=== PATIENT | female | born 1950 | race Caucasian/White ===

== ENCOUNTER 2016-05-27 10:04 | Emergency (ER) | payer OTHER ==
[~2016-05-27] VITALS: Ht 157.5 cm; Wt 80.0 kg
[~2016-05-27 10:04] MED LIST: ALBU6.7H INH; ASPI81TA82 PO; BUPR1SUB SL; CENTTAB9 PO; CINN500C7 PO; CLON0.2T PO; COZA50TA PO; DICL75 PO; FENO200C PO; FISH120014 PO; GARL500T PO; LEVO50TA4 PO; PRAV10 PO; PRIL20CA PO; VITA-13 PO; VITA100017 PO; VITA400C70 PO; ZITH250T PO
[2016-05-27 10:20] VITALS: BP 141/94; PULSE 88; RESP 20; TEMP 98.9; O2SAT 95
[2016-05-27 11:21] VITALS: BP 167/76; TEMP 98.8; O2SAT 97
[2016-05-27] MEDS ORDERED: SODIUM CHLORIDE 0.9% FLUSH 10 ML FLUSH IVF PRN (11:30)
[2016-05-27] MEDS ORDERED: MULT1TAB84 PO (11:30)
[2016-05-27] MEDS ORDERED: LEVO50TA4 PO (11:30)
[2016-05-27] MEDS ORDERED: FISH1000 PO (11:30)
[2016-05-27] MEDS ORDERED: methylPREDNISolone SOD SUCC 125 MG/2 ML VIAL IVP ONE (11:30)
[2016-05-27] MEDS ORDERED: CHOL50006 PO (11:30)
[2016-05-27] MEDS ORDERED: PRAV40TA2 PO (11:30)
[2016-05-27] MEDS ORDERED: LOSA50TA PO (11:30)
[2016-05-27] MEDS ORDERED: DICL75TA PO (11:30)
[2016-05-27] MEDS ORDERED: BUPR1SUB PO (11:30)
[2016-05-27] MEDS ORDERED: CINN500C PO (11:30)
[2016-05-27] MEDS ORDERED: METO25TA3 PO (11:30)
[2016-05-27] MEDS ORDERED: ASPI81TA81 PO (11:30)
[2016-05-27] MEDS ORDERED: OMEP20TA PO (11:30)
[2016-05-27] MEDS ORDERED: RESP: LIDOCAINE HCL 4% PF 5 ML NEB NEB ONE (11:30)
[2016-05-27] MEDS ORDERED: FENO2.5C PO (11:30)
--- NOTE | 2016-05-27 11:34 | PD ---
HPI Chief Complaint: Fever Time Seen by Provider: 11:17 Travel History International Travel<30 days: No Contact w/Intl Traveler<30days: No Traveled to known affect area: No History of Present Illness HPI The patient is a 65-year-old female who presents to the emergency department for cough and cold symptoms of 2 days' duration. The patient notes a 2 day history of sinus congestion, productive cough producing yellow sputum, sore throat, muscle aches, and mild shortness of breath. The patient has a history of pneumonia with similar symptoms. The patient also reports a fever at home as high as 101. The patient denies taking any antipyretics prior to arrival. The patient also complains of some chest congestion associated with a cough. The patient denies any nausea, vomiting, diarrhea, abdominal pain, or dysuria. The patient's primary physician is Dr. Jones in [place], [place]. The patient's symptoms are moderate, there are no alleviating or exacerbating factors. The patient denies any history tobacco use or COPD. PFSH Past Medical History Arthritis: Yes Bipolar Disorder: Yes Anxiety: Yes Depression: Yes Diminished Hearing: No Gastrointestinal Disorders: Yes Hepatitis: Yes (TYPE A MANY YEARS AGO) Hypertension: Yes Musculoskeletal: Yes (CHRONIC BACK PAIN) Psychiatric: Yes Past Surgical History Appendectomy: Yes Cholecystectomy: Yes Gynecologic Surgery: Yes Hysterectomy: Yes Neurologic Surgery: No Oral Surgery: Yes Thoracic Surgery: Yes (BACK SURGERY) Tonsillectomy: Yes (1975) Other Surgery: Yes Social History Alcohol Use: No Tobacco Use: No Substance Use: No Allergies-Medications (Allergen,Severity, Reaction): Coded Allergies: No Known Allergies (Verified , 12/03/14) Reported Meds & Prescriptions Reported Meds & Active Scripts Active Reported Metoprolol Tartrate 25 Mg Tab 25 Mg PO DAILY Fenofibrate 50 Mg Cap 200 Mg PO DAILY Diclofenac Sodium DR (Diclofenac Sodium) 75 Mg Tabdr 75 Mg PO DAILY Levothyroxine (Levothyroxine Sodium) 50 Mcg Tab 50 Mcg PO DAILY Omeprazole 20 Mg Tab 20 Mg PO DAILY Aspir-81 (Aspirin) 81 Mg Tabdr 1 Tab PO DAILY Fish Oil ([place]-3 Fatty Acids) 1,000 Mg Cap 1 Cap PO DAILY Multivitamin Adults (Multiple Vitamins W/ Minerals) 1 Tab 1 Tab PO DAILY Vitamin D (Cholecalciferol) 5,000 Unit Tab 1 Tab PO DAILY Cinnamon 500 Mg Cap 1,000 Mg PO DAILY Losartan (Losartan Potassium) 50 Mg Tab 50 Mg PO DAILY Pravastatin 40 Mg Tab 40 Mg PO DAILY Zubsolv (Buprenorphine/Naloxone) 0.7-0.18 Mg Tab 0.5 Tab PO BID Review of Systems Except as stated in HPI: all other systems reviewed are Neg General / Constitutional: Positive: Fever HENT: Positive: Sore Throat, Congestion Cardiovascular: Positive: Chest Pain or Discomfort Respiratory: Positive: Cough, Shortness of Breath, Wheezing Gastrointestinal: No: Nausea, Vomiting, Diarrhea, Abdominal Pain Genitourinary: No: Dysuria Musculoskeletal: Positive: Myalgias, No: Weakness Skin: No Rash Physical Exam Narrative GENERAL: Awake, alert, pleasant 65-year-old female who appears her stated age and is in no acute respiratory distress. SKIN: Focused skin assessment warm/dry. HEAD: Atraumatic. Normocephalic. EYES: Pupils equal and round. No scleral icterus. No injection or drainage. ENT: No nasal bleeding or discharge. Cobblestoning of posterior pharynx, no exudate. NECK: Trachea midline. No JVD. CARDIOVASCULAR: Regular rate and rhythm. No murmur appreciated. RESPIRATORY: No accessory muscle use. Diffuse rhonchi and wheezing. GASTROINTESTINAL: Abdomen soft, non-tender, nondistended. No rebound tenderness. MUSCULOSKELETAL: No obvious deformities. No clubbing. No cyanosis. No edema. NEUROLOGICAL: Awake and alert. No obvious cranial nerve deficits. Motor grossly within normal limits. Normal speech. PSYCHIATRIC: Appropriate mood and affect; insight and judgment normal. Data Data Last Documented VS Vital Signs Date Time Temp Pulse Resp B/P Pulse Ox O2 Delivery O2 Flow Rate FiO2 05/27/16 11:46 94 Nasal Cannula 2 05/27/16 11:21 98.8 75 20 167/76 Orders Complete Blood Count With Diff (05/27/16 11:27) Comprehensive Metabolic Panel (05/27/16 11:27) B-Type Natriuretic Peptide (05/27/16 11:27) Magnesium (Mg) (05/27/16 11:27) Ckmb (Isoenzyme) Profile (05/27/16 11:27) Troponin I (05/27/16 11:27) Urinalysis - C+S If Indicated (05/27/16 11:27) Influenzae A/B Antigen (05/27/16 11:27) Iv Access Insert/Monitor (05/27/16 11:27) Electrocardiogram (05/27/16 11:27) Ecg Monitoring (05/27/16 11:27) Oximetry (05/27/16 11:27) Oxygen Administration (05/27/16 11:27) Chest, Single Ap (05/27/16 11:27) Sodium Chloride 0.9% Flush (Ns Flush) (05/27/16 11:30) Methylprednisolone So Succ Inj (Solumedr (05/27/16 11:30) Albuterol-Ipratropium Neb (Duoneb Neb) (05/27/16 11:30) Lidocaine Pf 4% Neb (Lidocaine Pf 4% Neb (05/27/16 11:30) CKMB (05/27/16 11:35) CKMB% (05/27/16 11:35) Urine Culture (05/27/16 13:05) Ciprofloxacin 400 Mg Premix (Cipro 400 M (05/27/16 14:00) Labs Laboratory Tests Test 05/27/16 05/27/16 11:35 13:05 White Blood Count 5.1 TH/MM3 Red Blood Count 4.72 MIL/MM3 Hemoglobin 13.1 GM/DL Hematocrit 38.7 % Mean Corpuscular Volume 82.0 FL Mean Corpuscular Hemoglobin 27.8 PG Mean Corpuscular Hemoglobin 33.9 % Concent Red Cell Distribution Width 14.3 % Platelet Count 314 TH/MM3 Mean Platelet Volume 8.3 FL Neutrophils (%) (Auto) 63.1 % Lymphocytes (%) (Auto) 22.1 % Monocytes (%) (Auto) 10.0 % Eosinophils (%) (Auto) 4.1 % Basophils (%) (Auto) 0.7 % Neutrophils # (Auto) 3.2 TH/MM3 Lymphocytes # (Auto) 1.1 TH/MM3 Monocytes # (Auto) 0.5 TH/MM3 Eosinophils # (Auto) 0.2 TH/MM3 Basophils # (Auto) 0.0 TH/MM3 CBC Comment DIFF FINAL Differential Comment Sodium Level 141 MEQ/L Potassium Level 4.2 MEQ/L Chloride Level 107 MEQ/L Carbon Dioxide Level 26.8 MEQ/L Anion Gap 7 MEQ/L Blood Urea Nitrogen 13 MG/DL Creatinine 0.81 MG/DL Estimat Glomerular Filtration 71 ML/MIN Rate Random Glucose 80 MG/DL Calcium Level 8.9 MG/DL Magnesium Level 2.1 MG/DL Total Bilirubin 0.4 MG/DL Aspartate Amino Transf 31 U/L (AST/SGOT) Alanine Aminotransferase 35 U/L (ALT/SGPT) Alkaline Phosphatase 74 U/L Total Creatine Kinase 122 U/L Creatine Kinase MB 1.2 NG/ML Troponin I LESS THAN 0.02 NG/ML B-Type Natriuretic Peptide 27 PG/ML Total Protein 7.6 GM/DL Albumin 3.8 GM/DL Urine Color DARK-YELLOW Urine Turbidity HAZY Urine pH 5.5 Urine Specific [place] 1.036 Urine Protein 30 mg/dL Urine Glucose (UA) NEG mg/dL Urine Ketones TRACE mg/dL Urine Occult Blood NEG Urine Nitrite NEG Urine Bilirubin NEG Urine Urobilinogen LESS THAN 2.0 MG/DL Urine Leukocyte Esterase LARGE Urine WBC 15 /hpf Urine Squamous Epithelial 3 /hpf Cells Urine Transitional Epithelial <1 /hpf Cells Urine Calcium Oxalate Crystals FEW /hpf Urine Bacteria RARE /hpf Urine Mucus MANY /lpf Microscopic Urinalysis Comment CULTURE INDICATED MDM Medical Decision Making Medical Screen Exam Complete: Yes Emergency Medical Condition: Yes Medical Record Reviewed: Yes Interpretation(s) EKG reveals normal sinus rhythm with a rate of 74. Nonspecific T wave changes. Laboratory Tests Test 05/27/16 05/27/16 11:35 13:05 White Blood Count 5.1 TH/MM3 Red Blood Count 4.72 MIL/MM3 Hemoglobin 13.1 GM/DL Hematocrit 38.7 % Mean Corpuscular Volume 82.0 FL Mean Corpuscular Hemoglobin 27.8 PG Mean Corpuscular Hemoglobin 33.9 % Concent Red Cell Distribution Width 14.3 % Platelet Count 314 TH/MM3 Mean Platelet Volume 8.3 FL Neutrophils (%) (Auto) 63.1 % Lymphocytes (%) (Auto) 22.1 % Monocytes (%) (Auto) 10.0 % Eosinophils (%) (Auto) 4.1 % Basophils (%) (Auto) 0.7 % Neutrophils # (Auto) 3.2 TH/MM3 Lymphocytes # (Auto) 1.1 TH/MM3 Monocytes # (Auto) 0.5 TH/MM3 Eosinophils # (Auto) 0.2 TH/MM3 Basophils # (Auto) 0.0 TH/MM3 CBC Comment DIFF FINAL Differential Comment Sodium Level 141 MEQ/L Potassium Level 4.2 MEQ/L Chloride Level 107 MEQ/L Carbon Dioxide Level 26.8 MEQ/L Anion Gap 7 MEQ/L Blood Urea Nitrogen 13 MG/DL Creatinine 0.81 MG/DL Estimat Glomerular Filtration 71 ML/MIN Rate Random Glucose 80 MG/DL Calcium Level 8.9 MG/DL Magnesium Level 2.1 MG/DL Total Bilirubin 0.4 MG/DL Aspartate Amino Transf 31 U/L (AST/SGOT) Alanine Aminotransferase 35 U/L (ALT/SGPT) Alkaline Phosphatase 74 U/L Total Creatine Kinase 122 U/L Creatine Kinase MB 1.2 NG/ML Troponin I LESS THAN 0.02 NG/ML B-Type Natriuretic Peptide 27 PG/ML Total Protein 7.6 GM/DL Albumin 3.8 GM/DL Urine Color DARK-YELLOW Urine Turbidity HAZY Urine pH 5.5 Urine Specific [place] 1.036 Urine Protein 30 mg/dL Urine Glucose (UA) NEG mg/dL Urine Ketones TRACE mg/dL Urine Occult Blood NEG Urine Nitrite NEG Urine Bilirubin NEG Urine Urobilinogen LESS THAN 2.0 MG/DL Urine Leukocyte Esterase LARGE Urine WBC 15 /hpf Urine Squamous Epithelial 3 /hpf Cells Urine Transitional Epithelial <1 /hpf Cells Urine Calcium Oxalate Crystals FEW /hpf Urine Bacteria RARE /hpf Urine Mucus MANY /lpf Microscopic Urinalysis Comment CULTURE INDICATED Last Impressions Chest X-Ray 05/27/16 1127 Signed Impressions: Service Date/Time: Friday, May 27, 2016 11:46 - CONCLUSION: No acute disease. Joe Griffin MD Differential Diagnosis Differential diagnosis includes influenza, bronchitis, pneumonia, viral syndrome , congestive heart failure, ACS. Narrative Course IV was established, labs are drawn and sent, and the patient was placed on cardiac telemetry monitoring and continuous pulse oximetry monitoring. EKG was ordered and interpreted. Chest x-ray was obtained. Influenza screen was sent to lab. The patient received Solu-Medrol 125 g intravenously and duo nebs 3 with respiratory lidocaine. Chest x-ray was negative. White count is normal. BNP is within normal limits. Troponin is negative. The patient is reevaluated after nebulizers, her symptoms have improved. The patient is are taken an antibiotic, erythromycin, that was prescribed for by her physician for the bronchitis. The patient's UA is positive, will be treated with Cipro. The patient will be discharged home on Cipro, prednisone, and albuterol nebulizers. She does have a nebulizer machine, a family members, at home that she can use. The patient is advised to follow-up with her physician on Monday and return sooner if symptoms worsen or progress. Diagnosis Primary Impression: Bronchitis Additional Impression: UTI (urinary tract infection) Qualified Code: N30.00 - Acute cystitis without hematuria Patient Instructions: General Instructions Additional Instructions: Medications as directed. Follow-up with your primary physician. Please provide the patient a copy of her x-ray results and lab results at discharge. Return sooner if symptoms worsen or progress. Med/Other Pt SpecificInfo: Prescription(s) given Scripts Albuterol Neb 2.5 Mg/3 Ml Neb2.5 Mg NEB Q4HR NEB #60 NEBULE Ref 0 While awake Prov:Avinash Nur MD 05/27/16 Prednisone (Deltasone)20 Mg Tab40 Mg PO DAILY 5 Days Ref 0 Prov:Avinash Nur MD 05/27/16 Ciprofloxacin (Cipro)500 Mg Ero056 Mg PO BID 7 Days Ref 0 Prov:Avinash Nur MD 05/27/16 Disposition: 01 DISCHARGE HOME Condition: Stable Avinash Nur MD May 27, 2016 11:34
[2016-05-27] MEDS: RESP: ALBUTEROL 2.5 MG/IPRATROPIUM 0.5 MG NEB (SCH) INH (11:49)
[2016-05-27 11:55] LABS: AUTOMATED NEUTROPHIL # 3.2 TH/MM3 (1.8-7.7); BASOPHIL % 0.7 % (0.0-2.0); EOSINOPHIL # 0.2 TH/MM3 (0-0.4); EOSINOPHIL % 4.1 % (0.0-4.0); HEMATOCRIT 38.7 % (35.0-46.0); HEMO FLAGS DIFF FINAL; LYMPH % 22.1 % (9.0-44.0); LYMPHOCYTE # 1.1 TH/MM3 (1.0-4.8); MEAN CORPUSCULAR HEMOGLOBIN 27.8 PG (27.0-34.0); MEAN CORPUSCULAR HGB CONC 33.9 % (32.0-36.0); NEUT % 63.1 % (16.0-70.0); PLATELET COUNT 314 TH/MM3 (150-450); RED BLOOD COUNT 4.72 MIL/MM3 (4.00-5.30); RED CELL DISTRIBUTION WIDTH 14.3 % (11.6-17.2); WHITE BLOOD COUNT 5.1 TH/MM3 (4.0-11.0)
[2016-05-27 12:14] LABS: ANION GAP 7 MEQ/L (5-15); AST (GOT) 31 U/L (15-37); BICARBONATE 26.8 MEQ/L (21.0-32.0); BLOOD UREA NITROGEN 13 MG/DL (7-18); CHLORIDE 107 MEQ/L (98-107); GLOMERULAR FILTRATION RATE 71 ML/MIN (>89); MAGNESIUM 2.1 MG/DL (1.5-2.5); POTASSIUM 4.2 MEQ/L (3.5-5.1); SODIUM (NA) 141 MEQ/L (136-145)
[2016-05-27 12:18] LABS: ALKALINE PHOSPHATASE 74 U/L (45-117); ALT (GPT) 35 U/L (10-53); CREATINE KINASE 122 U/L (26-192); TOTAL BILIRUBIN ADULT 0.4 MG/DL (0.2-1.0)
--- NOTE | 2016-05-27 12:27 | RADRPT ---
EXAM DATE/TIME: 05/27/2016 11:46 [facility] COMPARISON: CHEST SINGLE AP, December 03, 2014, 10:39. INDICATIONS : Short of breath. MEDICAL HISTORY : None. SURGICAL HISTORY : None. ENCOUNTER: Initial ACUITY: 2 days PAIN SCORE: 7/10 LOCATION: Bilateral chest FINDINGS: A single view of the chest demonstrates the lungs to be symmetrically aerated without evidence of mas s, infiltrate or effusion. The cardiomediastinal contours are unremarkable. Osseous structures are intact. CONCLUSION: No acute disease. Joe Griffin MD on May 27, 2016 at 12:25 Board Certified Radiologist. This report was verified electronically.
[2016-05-27 12:30] LABS: CKMB 1.2 NG/ML (0.5-3.6)
[2016-05-27 13:39] LABS: BACTERIA, URINE RARE /hpf; BLOOD, URINE NEG (NEG); CALCIUM OXALATE CRYSTALS,URINE FEW /hpf; GLUCOSE,URINE NEG (NEG); KETONE, URINE TRACE mg/dL (NEG); MUCUS URINE MANY /lpf (OCC); NITRITE,URINE NEG (NEG); PH, URINE 5.5 (5.0-8.5); SQUAMOUS EPITHELIAL CELL URINE 3 /hpf (0-5); TRANSITIONAL EPI CELLS, URINE <1 /hpf; URINE COLOR DARK-YELLOW (YELLW/STRAW)
[2016-05-27 13:43] LABS: COMMENT (UR) CULTURE INDICATED; CULTURE IF INDICATED CULTURE INDICATED
[2016-05-27 14:00] VITALS: BP 142/66; PULSE 95; RESP 20; O2SAT 98
[2016-05-27] MEDS ORDERED: CIPROFLOXACIN 400 MG PREMIX 200 ML IV ONE (14:00)
[2016-05-27] MEDS ORDERED: CIPR-9 PO (14:02)
[2016-05-27] MEDS ORDERED: PRED-503 PO (14:02)
[2016-05-27] MEDS ORDERED: ALBU0.08 NEB (14:02)
--- NOTE | 2016-05-28 14:25 | EKG ---
Date Performed: 05/27/2016 Time Performed: 11:42:28 PTAGE: 65 years EKG: Sinus rhythm NONSPECIFIC T-WAVE ABNORMALITY Since previous tracing, no significant change noted BORDERLINE ECG PREVIOUS TRACING : 05/31/1994 11.08 DOCTOR: Greg Ackerman Interpretating Date/Time 05/28/2016 14:23:43
== END 2016-05-27 17:45 | disposition home or self-care (01) ==
LOC: NEPE 10:04
DX: J40 Bronchitis, not specified as acute or chronic (principal); N39.0 Urinary tract infection, site not specified; R94.31 Abnormal electrocardiogram [ECG] [EKG]; I10 Essential (primary) hypertension
CPT/HCPCS: 71010; 80053; 81001; 82550; 82552; 83735; 83880; 84484; 85025; 87086; 87804; 93005; 94640; 94664; 96374; 96375; 99284; J0744; J2930

== ENCOUNTER 2016-10-16 13:30 | Emergency (ER) | payer OTHER ==
[~2016-10-16 13:30] MED LIST changes: +ALBU0.08 NEB; -ALBU6.7H INH; +ASPI81TA81 PO; -ASPI81TA82 PO; +BUPR1SUB PO; -BUPR1SUB SL; -CENTTAB9 PO; +CHOL50006 PO; +CINN500C PO; -CINN500C7 PO; +CIPR-9 PO; -CLON0.2T PO; -COZA50TA PO; -DICL75 PO; +DICL75TA PO; +FENO2.5C PO; -FENO200C PO; +FISH1000 PO; -FISH120014 PO; -GARL500T PO; +LOSA50TA PO; +METO25TA3 PO; +MULT1TAB84 PO; +OMEP20TA PO; -PRAV10 PO; +PRAV40TA2 PO; +PRED-503 PO; -PRIL20CA PO; -VITA-13 PO; -VITA100017 PO; -VITA400C70 PO; -ZITH250T PO
[2016-10-16 13:32] VITALS: BP 178/74; PULSE 84; RESP 15; TEMP 97.9; O2SAT 98
--- NOTE | 2016-10-16 14:03 | PD ---
HPI Chief Complaint: GI Complaint Time Seen by Provider: 14:01 Travel History International Travel<30 days: No Contact w/Intl Traveler<30days: No Traveled to known affect area: No History of Present Illness HPI 66-year-old female presents the emergency department one week history of nausea, vomiting, and generalized weakness. Patient states long history of back pain for which she was treated with morphine for almost 15 years and then changed to Suboxone for the last 10 years for pain control. Patient states she ran out of her Suboxone approximately one week ago and does not want to continue it. Since that time she's had the nausea, vomiting, and one bout of diarrhea. Patient states she is unable to keep much food down, but has been trying to keep her fluids up. She denies fever but has had some chills. She denies abdominal pain and is moving her bowels. She does have some pain in the lower ribs which she feels is from vomiting. She denies chest pain or shortness of breath. She has no known drug allergies. PFSH Past Medical History Arthritis: Yes Bipolar Disorder: Yes Anxiety: Yes Depression: Yes Diminished Hearing: No Gastrointestinal Disorders: Yes Hepatitis: Yes (TYPE A MANY YEARS AGO) Hypertension: Yes Musculoskeletal: Yes (CHRONIC BACK PAIN) Psychiatric: Yes Past Surgical History Appendectomy: Yes Cholecystectomy: Yes Gynecologic Surgery: Yes Hysterectomy: Yes Neurologic Surgery: No Oral Surgery: Yes Thoracic Surgery: Yes (BACK SURGERY) Tonsillectomy: Yes (1975) Other Surgery: Yes Social History Alcohol Use: No Tobacco Use: No Substance Use: No Allergies-Medications (Allergen,Severity, Reaction): Coded Allergies: No Known Allergies (Verified , 12/03/14) Reported Meds & Prescriptions Reported Meds & Active Scripts Active Albuterol Neb (Albuterol Sulfate) 2.5 Mg/3 Ml Neb 2.5 Mg NEB Q4HR NEB While awake Deltasone (Prednisone) 20 Mg Tab 40 Mg PO DAILY 5 Days Cipro (Ciprofloxacin HCl) 500 Mg Tab 500 Mg PO BID 7 Days Reported Metoprolol Tartrate 25 Mg Tab 25 Mg PO DAILY Fenofibrate 50 Mg Cap 200 Mg PO DAILY Diclofenac Sodium DR (Diclofenac Sodium) 75 Mg Tabdr 75 Mg PO DAILY Levothyroxine (Levothyroxine Sodium) 50 Mcg Tab 50 Mcg PO DAILY Omeprazole 20 Mg Tab 20 Mg PO DAILY Aspir-81 (Aspirin) 81 Mg Tabdr 1 Tab PO DAILY Fish Oil ([place]-3 Fatty Acids) 1,000 Mg Cap 1 Cap PO DAILY Losartan (Losartan Potassium) 50 Mg Tab 50 Mg PO DAILY Pravastatin 40 Mg Tab 40 Mg PO DAILY Zubsolv (Buprenorphine/Naloxone) 0.7-0.18 Mg Tab 0.5 Tab PO BID Review of Systems Except as stated in HPI: all other systems reviewed are Neg General / Constitutional: Positive: Chills, No: Fever Eyes: No: Visual changes HENT: No: Headaches Cardiovascular: No: Chest Pain or Discomfort Respiratory: No: Cough, Shortness of Breath, Wheezing, Sneezing Gastrointestinal: Positive: Nausea, Vomiting, Diarrhea (see history present illness), Loss of Appetite, No: Abdominal Pain, Constipation, Indigestion, Dysphagia Genitourinary: No: Dysuria Musculoskeletal: No: Pain Skin: No Rash Neurologic: No: Weakness Psychiatric: No: Depression Endocrine: No: Polydipsia Hematologic/Lymphatic: No: Easy Bruising Physical Exam Narrative GENERAL: Patient appears in no acute distress. SKIN: Warm and dry. Normal color. Decreased turgor with mild tenting. HEAD: Atraumatic. Normocephalic. EYES: Pupils equal and round. No scleral icterus. No injection or drainage. ENT: No nasal bleeding or discharge. Mucous membranes pink and moist. Pharynx is clear. Airway is patent. NECK: Trachea midline. Supple and nontender. CARDIOVASCULAR: Regular rate and rhythm. No murmurs gallops or rubs. RESPIRATORY: No accessory muscle use. Clear to auscultation. Breath sounds equal bilaterally. GASTROINTESTINAL: Abdomen soft, non-tender, nondistended. Bowel sounds present in all quadrants. Hepatic and splenic margins not palpable. No CVA tenderness. MUSCULOSKELETAL: Extremities without clubbing, cyanosis, or edema. No obvious deformities. NEUROLOGICAL: Awake and alert. No obvious cranial nerve deficits. Motor grossly within normal limits. Five out of 5 muscle strength in the arms and legs. Normal speech. PSYCHIATRIC: Appropriate mood and affect; insight and judgment normal. Data Data Last Documented VS Vital Signs Date Time Temp Pulse Resp B/P (MAP) Pulse Ox O2 Delivery O2 Flow Rate FiO2 10/16/16 15:43 74 18 132/70 (90) 99 Room Air 10/16/16 13:32 97.9 Orders Orders Complete Blood Count With Diff (10/16/16 14:01) Comprehensive Metabolic Panel (10/16/16 14:01) Lipase (10/16/16 14:01) Lactic Acid (10/16/16 14:01) Prothrombin Time / Inr (Pt) (10/16/16 14:01) Act Partial Throm Time (Ptt) (10/16/16 14:01) Urinalysis - C+S If Indicated (10/16/16 14:) Iv Access Insert/Monitor (10/16/16 14:) Ecg Monitoring (10/16/16 14:) Oximetry (10/16/16 14:01) Ondansetron Inj (Zofran Inj) (10/16/16 14:15) Sodium Chlor 0.9% 1000 Ml Inj (Ns 1000 M (10/16/16 14:) Sodium Chloride 0.9% Flush (Ns Flush) (10/16/16 14:15) Electrocardiogram (10/16/16 14:) Abdomen, Upright Only (10/16/16 14:) Chest, Single Ap (10/16/16 14:) Famotidine Inj (Pepcid Inj) (10/16/16 14:15) Labs Laboratory Tests Test 10/16/16 14:15 10/16/16 15:15 White Blood Count 7.6 TH/MM3 Red Blood Count 5.03 MIL/MM3 Hemoglobin 13.7 GM/DL Hematocrit 42.3 % Mean Corpuscular Volume 84.1 FL Mean Corpuscular Hemoglobin 27.2 PG Mean Corpuscular Hemoglobin Concent 32.3 % Red Cell Distribution Width 14.4 % Platelet Count 353 TH/MM3 Mean Platelet Volume 7.7 FL Neutrophils (%) (Auto) 67.2 % Lymphocytes (%) (Auto) 22.6 % Monocytes (%) (Auto) 8.4 % Eosinophils (%) (Auto) 1.3 % Basophils (%) (Auto) 0.5 % Neutrophils # (Auto) 5.1 TH/MM3 Lymphocytes # (Auto) 1.7 TH/MM3 Monocytes # (Auto) 0.6 TH/MM3 Eosinophils # (Auto) 0.1 TH/MM3 Basophils # (Auto) 0.0 TH/MM3 CBC Comment DIFF FINAL Differential Comment Prothrombin Time 11.3 SEC Prothromb Time International Ratio 1.0 RATIO Activated Partial Thromboplast Time 26.1 SEC Blood Urea Nitrogen 18 MG/DL Creatinine 0.96 MG/DL Random Glucose 92 MG/DL Total Protein 7.9 GM/DL Albumin 4.1 GM/DL Calcium Level 9.6 MG/DL Alkaline Phosphatase 81 U/L Aspartate Amino Transf (AST/SGOT) 28 U/L Alanine Aminotransferase (ALT/SGPT) 43 U/L Total Bilirubin 0.6 MG/DL Sodium Level 140 MEQ/L Potassium Level 3.9 MEQ/L Chloride Level 106 MEQ/L Carbon Dioxide Level 25.9 MEQ/L Anion Gap 8 MEQ/L Estimat Glomerular Filtration Rate 59 ML/MIN Lactic Acid Level 0.9 mmol/L Lipase 136 U/L Urine Color YELLOW Urine Turbidity HAZY Urine pH 5.5 Urine Specific [place] 1.027 Urine Protein 30 mg/dL Urine Glucose (UA) NEG mg/dL Urine Ketones TRACE mg/dL Urine Occult Blood NEG Urine Nitrite NEG Urine Bilirubin NEG Urine Urobilinogen LESS THAN 2.0 MG/DL Urine Leukocyte Esterase NEG Urine RBC 14 /hpf Urine WBC 4 /hpf Urine Squamous Epithelial Cells 2 /hpf Urine Amorphous Sediment RARE Urine Hyaline Casts 3 /lpf Urine Mucus MANY /lpf Microscopic Urinalysis Comment CULT NOT INDICATED MDM Medical Decision Making Medical Screen Exam Complete: Yes Emergency Medical Condition: Yes Medical Record Reviewed: Yes Differential Diagnosis Nausea and vomiting. Diarrhea. Suboxone withdrawal. Narrative Course Patient is medically stable at time of exam. Labs ordered including CBC, CMP, lipase, urinalysis. IV access is obtained and the patient is given 2 L normal saline bolus. Patient is given 4 mg Zofran IV as well as 20 mg Pepcid IV. EKG and chest x-ray is ordered. CBC is unremarkable. CMP is unremarkable. Lactic acid 0.9. Electrolytes and lipase are all normal. BUN/creatinine are normal. Coagulation studies are normal. Urinalysis shows no significant findings. 1540 hrs. patient is reassessed and feels much improved. Patient is felt stable for discharge on Zofran 4 mg 1 every 6 hours when necessary nausea. #20. Patient is to follow with her primary care or pain management physician as discussed. Diagnosis Primary Impression: Nausea & vomiting Qualified Codes: R11.2 - Nausea with vomiting, unspecified Additional Impression: Medication withdrawal Qualified Codes: F11.23 - Opioid dependence with withdrawal Referrals: Pain Management Primary Care Physician Patient Instructions: Acute Nausea and Vomiting (ED), General Instructions Additional Instructions: Patient is felt stable for discharge on Zofran 4 mg 1 every 6 hours when necessary nausea. #20. Patient is to follow with her primary care or pain management physician as discussed. Med/Other Pt SpecificInfo: Prescription(s) given Disposition: 01 DISCHARGE HOME Condition: Stable Jean Pierre Wilkins Oct 16, 2016 14:03
[2016-10-16] MEDS ORDERED: ONDANSETRON HCL 4 MG/2 ML VIAL IVP ONE (14:15)
[2016-10-16] MEDS ORDERED: FAMOTIDINE 20 MG/2 ML VIAL IV PUSH ONE (14:15)
[2016-10-16] MEDS ORDERED: SODIUM CHLORIDE 0.9% FLUSH 10 ML FLUSH IV FLUSH PRN (14:15)
[2016-10-16 14:32] LABS: AUTOMATED NEUTROPHIL # 5.1 TH/MM3 (1.8-7.7); BASOPHIL % 0.5 % (0.0-2.0); EOSINOPHIL # 0.1 TH/MM3 (0-0.4); EOSINOPHIL % 1.3 % (0.0-4.0); HEMATOCRIT 42.3 % (35.0-46.0); HEMO FLAGS DIFF FINAL; LYMPH % 22.6 % (9.0-44.0); LYMPHOCYTE # 1.7 TH/MM3 (1.0-4.8); MEAN CELL VOLUME 84.1 FL (80.0-100.0); MEAN CORPUSCULAR HEMOGLOBIN 27.2 PG (27.0-34.0); MEAN CORPUSCULAR HGB CONC 32.3 % (32.0-36.0); MONO % 8.4 % (0.0-8.0); NEUT % 67.2 % (16.0-70.0); PLATELET COUNT 353 TH/MM3 (150-450); RED BLOOD COUNT 5.03 MIL/MM3 (4.00-5.30); RED CELL DISTRIBUTION WIDTH 14.4 % (11.6-17.2); WHITE BLOOD COUNT 7.6 TH/MM3 (4.0-11.0)
[2016-10-16] MEDS: SODIUM CHLOR 0.9% 1000 ML INJ 1,000 ML IV SCH ×2 (14:35→15:12)
[2016-10-16 14:38] LABS: APTT (PATIENT) 26.1 SEC (24.3-30.1); PROTHROMBIN TIME - PATIENT 11.3 SEC (9.8-11.6)
[2016-10-16 14:46] LABS: ANION GAP 8 MEQ/L (5-15); AST (GOT) 28 U/L (15-37); BICARBONATE 25.9 MEQ/L (21.0-32.0); BLOOD UREA NITROGEN 18 MG/DL (7-18); CHLORIDE 106 MEQ/L (98-107); GLOMERULAR FILTRATION RATE 59 ML/MIN (>89); POTASSIUM 3.9 MEQ/L (3.5-5.1); SODIUM (NA) 140 MEQ/L (136-145)
[2016-10-16 14:50] LABS: ALKALINE PHOSPHATASE 81 U/L (45-117); ALT (GPT) 43 U/L (10-53); TOTAL BILIRUBIN ADULT 0.6 MG/DL (0.2-1.0)
--- NOTE | 2016-10-16 15:10 | RADRPT ---
EXAM DATE/TIME: 10/16/2016 14:50 [facility] COMPARISON: CHEST SINGLE AP, May 27, 2016, 11:46. INDICATIONS : Pain bilaterally under lower ribs. MEDICAL HISTORY : None. SURGICAL HISTORY : Stimulator. ENCOUNTER: Initial ACUITY: 1 week PAIN SCORE: 5/10 LOCATION: Bilateral lower chest FINDINGS: A single view of the chest demonstrates the lungs to be symmetrically aerated without evidence of mas s, infiltrate or effusion. The cardiomediastinal contours are unremarkable. Spinal stimulator is no jesse. Osseous structures are intact. CONCLUSION: No acute disease. Harmeet De La O MD FACR on October 16, 2016 at 15:08 Board Certified Radiologist. This report was verified electronically.
--- NOTE | 2016-10-16 15:10 | RADRPT ---
EXAM DATE/TIME: 10/16/2016 14:51 [facility] COMPARISON: No previous studies available for comparison. INDICATIONS : Pain bilaterally under lower ribs. MEDICAL HISTORY : None. SURGICAL HISTORY : Cholecystectomy. Appendectomy. Stimulator. ENCOUNTER: Initial ACUITY: 1 week PAIN SCORE: 7/10 LOCATION: Bilateral upper abdomen. FINDINGS: A single erect view of the abdomen demonstrates the lower lungs to be clear. No evidence of free int raperitoneal gas. The visualized bowel loops are unremarkable. Spinal stimulator. Previous transpe dicular fixation L5-S1. CONCLUSION: Nonspecific.. Harmeet De La O MD FACR on October 16, 2016 at 15:08 Board Certified Radiologist. This report was verified electronically.
[2016-10-16 15:35] LABS: BLOOD, URINE NEG (NEG); COMMENT (UR) CULT NOT INDICATED; CULTURE IF INDICATED CULT NOT INDICATED; GLUCOSE,URINE NEG (NEG); HYALINE CAST, URINE 3 /lpf (RARE); KETONE, URINE TRACE mg/dL (NEG); MUCUS URINE MANY /lpf (OCC); NITRITE,URINE NEG (NEG); PH, URINE 5.5 (5.0-8.5); SQUAMOUS EPITHELIAL CELL URINE 2 /hpf (0-5); URINE COLOR YELLOW (YELLW/STRAW)
[2016-10-16 15:43] VITALS: BP 132/70; PULSE 74; RESP 18; O2SAT 99
[2016-10-16] MEDS ORDERED: ZOFR4TAB PO (15:45)
[2016-10-16] MEDS ORDERED: VITA400T18 PO (15:54)
[2016-10-16] MEDS ORDERED: VITA250T3 PO (15:54)
[2016-10-16] MEDS ORDERED: FENO200C PO (15:54)
[2016-10-16] MEDS ORDERED: CENTCHW4 PO (15:54)
[2016-10-16] MEDS ORDERED: CINN500C12 PO (15:54)
[2016-10-16] MEDS ORDERED: FISH1200 PO (15:54)
[2016-10-16] MEDS ORDERED: CHOL5000 PO (15:54)
[2016-10-16] MEDS ORDERED: GARL100T PO (15:55)
--- NOTE | 2016-10-17 20:15 | EKG ---
Date Performed: 10/16/2016 Time Performed: 15:32:12 PTAGE: 66 years EKG: Sinus rhythm MODERATE VOLTAGE CRITERIA FOR LVH, CONSIDER NORMAL VARIANT BORDERLINE ECG PREVIOUS TRACING : 05/27/2016 11.42 DOCTOR: Gely Chaves Interpretating Date/Time 10/17/2016 20:10:49
== END 2016-10-16 16:12 | disposition home or self-care (01) ==
LOC: NEPC 13:30
DX: R11.2 Nausea with vomiting, unspecified (principal); F11.23 Opioid dependence with withdrawal; R53.1 Weakness; R19.7 Diarrhea, unspecified; M13.80 Other specified arthritis, unspecified site; F31.9 Bipolar disorder, unspecified; F41.9 Anxiety disorder, unspecified; I10 Essential (primary) hypertension; Z79.82 Long term (current) use of aspirin
CPT/HCPCS: 71010; 74000; 80053; 81001; 83605; 83690; 85025; 85610; 85730; 93005; 96361; 96374; 96375; 99285; J2405; J7030

== ENCOUNTER 2018-02-26 07:07 | Inpatient (IN) ==
[2018-02-26] MEDS ORDERED: ceFAZolin 2 GM Premix Inj 2 GM/50 ML PIGGYBACK IV.SIG SCH ×2 (08:00→09:00)
[2018-02-26] MEDS ORDERED: Dexamethasone Inj 20 MG/5 ML Vial IV.PUSH ONE (08:00)
[2018-02-26] MEDS ORDERED: Chlorhexidine 4% Topical 120 APPLIC/120 ML Bottle TOPICAL SCH (08:00)
[2018-02-26] MEDS ORDERED: Vancomycin Inj 1,000 MG in Sodium Chlor 0.9% Inj 250 ML IV.SIG SCH (08:00)
[2018-02-26] MEDS ORDERED: Sodium Chlor 0.9% Inj 500 ML IV.CONT ONE (08:15)
[2018-02-26] MEDS ORDERED: Chlorhexidine Gluconate 2% 1 Pack (2 Cloths) TOPICAL ONE (08:15)
[2018-02-26] MEDS ORDERED: Metoprolol Tartrate 25 MG Tablet PO ONE (08:15)
[2018-02-26] MEDS ORDERED: Post-op Orders (for Pharmacy) OTHER STA (08:43)
[2018-02-26] MEDS ORDERED: Zolpidem Tartrate 5 MG Tablet PO PRN (08:43)
[2018-02-26] MEDS ORDERED: HYDROmorphone PF Inj 1 MG/ML Ampul IV.PUSH PRN (08:43)
[2018-02-26] MEDS ORDERED: Bisacodyl 10 MG Supp RECTAL PRN (08:43)
[2018-02-26] MEDS ORDERED: Tranexamic Acid Inj 3,000 MG in Sodium Chlor 0.9% Inj 100 ML P-ARTICULR SCH (09:00)
[2018-02-26] MEDS ORDERED: Tranexamic Acid Inj 1,300 MG in Sodium Chlor 0.9% Inj 100 ML IV.SIG SCH (09:00)
[2018-02-26] MEDS ORDERED: Sodium Chlor 0.9% Inj 73.07 ML, Ropivacaine 0.5% PF Inj 24.63 ML, Ketorolac Inj 30 MG, ... P-ARTICULR SCH ×5 (09:00)
[2018-02-26] MEDS ORDERED: Bupivacaine Liposomal PF 1.3% Inj 20 ML Vial ONE (09:07)
[2018-02-26] MEDS ORDERED: GENTAMICIN IRRIGATION ONE (11:31)
[2018-02-26] MEDS ORDERED: SODIUM CHLOR 0.9% IRRIGATION ONE (11:31)
--- NOTE | 2018-02-26 11:56 | P.OP ---
Procedure: PREOPERATIVE DIAGNOSIS: Left knee osteoarthritis. POSTOPERATIVE DIAGNOSIS: Left knee osteoarthritis. PROCEDURE PERFORMED: Left total knee arthroplasty. SURGEON: Dr. Daniel Perry M.D. CHEMICAL TREATMENT PLANT TECHNICIAN: JV Henson. ANESTHESIA: General with adductor canal femoral nerve block ESTIMATED BLOOD LOSS: 100 mL. COMPLICATIONS: None. IMPLANTS USED: Arthrex posterior stabilized femur [] 5 tibia baseplate [] 4 polyethylene insert [] 13 patella [] 37 Justification: The patient presents to the undersigned at [facility] with chief complaints of severe left knee pain. The pain is severe progressive and interferes with activities of daily living. The patient has failed greater than 3 months of nonoperative conservative treatment to include nonsteroidal anti-inflammatory medications, analgesic medications, physical therapy, cortisone injection, home exercise program, activity modification, ambulatory assistive aids, and weight loss. X-rays of the left knee reveal severe end- stage osteoarthritis with joint space narrowing, subchondral sclerosis, subchondral cysts, osteophyte formation, deformity with subluxation. The patient was counseled as to the risks, benefits, alternatives to a total knee arthroplasty. The risks were discussed which include but are not limited to, anesthesia, bleeding, infection, damage to nerves and blood vessels, continued pain, stiffness, failure of implants, blood clots, pulmonary embolism, and even . The patient's pain is severe and favors benefits over risk. The patient does wish to proceed with surgery as outlined above. Procedure in detail: Written consent has been obtained from the patient. The patient was identified and taken to the operating room. The patient was placed supine on the operating room table. General anesthesia was administered to the patient as well as an adductor canal femoral nerve block. The patient was administered preoperative IV antibiotic. A well-padded tourniquet was placed in the left thigh. The left lower extremity was prepped and draped using isopropyl alcohol , Hibiclens solution, and ChloraPrep solution. After a timeout was performed an Esmarch bandage was used to exsanguinate the left lower extremity. The tourniquet was inflated to 250 mmHg. A longitudinal incision was made over the anterior aspect of the left knee. A medial parapatellar arthrotomy was performed. The patella was everted. A patellar resection guide was used to assist with patellar resection. The patella drill guide was then placed to allow for 3 drill holes within the patella. The patella trial fit well. Attention was then turned to the femur where a intramedullary guide ramya was placed. The distal femoral guide was set to remove 11 mm of distal femur 5 degrees off the anatomic valgus axis alignment. An oscillating saw was used to perform the distal femoral cut. Attention was then turned to the tibia where extramedullary tibia guide was set to remove 4 mm off the lowest portion of the medial tibial plateau. The tibial guide was pinned in place and the tibial cut was performed. A 10 mm spacer block showed full extension. Attention was turned back to the femur with the AP sizing block used to assist with appropriate measurement and placement of the 3 degree external rotation AP cutting guide. The anterior, posterior and chamfer cuts were then performed. The PCL box guide was pinned in place and the PCL was boxed out with an oscillating saw. The medial and lateral meniscus remnants were removed as well as bone and soft tissue debris from the posterior portion of the knee. A tibia baseplate was then pinned in place and the tibia was drilled and punched. Trial components were evaluated and final components were then cemented in place. With the final components implanted the knee could achieve full extension to 0 degrees and flexion to 140, with no evidence of tibial liftoff. The testing of varus valgus balance appeared appropriate and symmetric with good stability. The patella was noted to track centrally. The tourniquet was deflated Bovie cautery was then used for hemostasis. The knee was then thoroughly irrigated with sterile saline pulse lavage antibiotic impregnated solution. The arthrotomy incision was closed with #1 Vicryl suture. The subcutaneous layer closed with 2-0 Vicryl suture. The skin incision was then closed with Dermabond. Sterile dressings were applied. The patient tolerated the procedure well with no intraoperative complications noted. Daniel Del Toro physician assistant track and field coach certified was present during the entire procedure to include patient positioning and the procedure itself. The medical necessity of a physician assistant track and field coach was indicated in this case due to the complexity of the procedure itself. He assisted with appropriate manipulation of the leg and also retraction of the muscle, tendon, bone and neurovascular structures. He assisted with preparation of bone and also implantation of the prosthetic replacement. There was a medical radiation tech within the room that was focused on handling of instruments but was not available to assist with the actual surgery itself. Surgeon: Daniel Leyva MD
[2018-02-26] MEDS ORDERED: fentaNYL Citrate Inj 100 MCG/2 ML Ampul ONE (12:00)
[2018-02-26] MEDS ORDERED: *Meperidine Inj 25 MG/ML Vial PERIprocedural Use ONLY ONE (12:27)
[2018-02-26] MEDS ORDERED: *morphine SULFATE 10 MG/ML PERIprocedure ONLY ONE ×2 (13:04→13:32)
--- NOTE | 2018-02-26 13:24 | XR ---
EXAM DATE: 02/26/2018 1:18 PM EST AGE/SEX: 67 years / Female INDICATIONS: Post left knee. CLINICAL DATA: This is the patient's initial encounter. Patient reports that signs and symptoms have been present for 1 day and indicates a pain score of Nonresponsive. MEDICAL/SURGICAL HISTORY: None. Total knee replacement, left. COMPARISON: No prior exams available for comparison. FINDINGS: A total knee arthroplasty is present. The tibial and femoral components appear well seated. There is soft tissue swelling and subcutaneous air as expected. No fracture or dislocation. CONCLUSION: Postop left knee arthroplasty. Electronically signed by: Joe Griffin MD Board Certified Radiologist 02/26/2018 1:23 PM EST
[2018-02-26] MEDS: ceFAZolin 2 GM Premix Inj 2 GM/50 ML PIGGYBACK IV.SIG SCH ×2 (15:30→23:23)
[2018-02-26] MEDS: Senna/Docusate Sodium 8.6/50 MG Tablet PO SCH ×2 (16:10→21:55)
[2018-02-26] MEDS: Multivitamin/Minerals Therapeutic Tablet PO SCH ×2 (16:11→21:55)
[2018-02-27] MEDS: Levothyroxine 75 MCG Tablet PO SCH (05:12)
[2018-02-27] MEDS: ceFAZolin 2 GM Premix Inj 2 GM/50 ML PIGGYBACK IV.SIG SCH (05:13)
--- NOTE | 2018-02-27 08:24 | P.PNOP ---
Subjective Interval history: pain controlled. Physical Exam Vital signs: Vital Signs 02/26/18 08:53 02/26/18 08:54 02/26/18 12:21 Temperature Pulse Rate 79 Respiratory Rate Blood Pressure Pulse Oximetry 99 98 02/26/18 12:50 02/26/18 12:55 02/26/18 13:00 Temperature 98.2 F Pulse Rate 74 71 66 Respiratory Rate 20 17 17 Blood Pressure 138/65 133/61 132/61 Pulse Oximetry 93 L 95 94 L 02/26/18 13:05 02/26/18 13:10 02/26/18 13:15 Temperature Pulse Rate 77 69 75 Respiratory Rate 21 19 18 Blood Pressure 130/55 L 120/56 L 119/56 L Pulse Oximetry 94 L 94 L 95 02/26/18 13:20 02/26/18 13:25 02/26/18 13:30 Temperature Pulse Rate 77 85 89 Respiratory Rate 16 25 H 23 Blood Pressure 122/58 L 128/59 L 132/59 L Pulse Oximetry 95 96 95 02/26/18 13:35 02/26/18 13:40 02/26/18 13:45 Temperature Pulse Rate 71 79 89 Respiratory Rate 17 27 H 20 Blood Pressure 122/56 L 128/60 122/57 L Pulse Oximetry 97 96 96 02/26/18 13:50 02/26/18 13:55 02/26/18 14:00 Temperature Pulse Rate 78 76 76 Respiratory Rate 23 26 H 19 Blood Pressure 129/61 112/56 L Pulse Oximetry 96 96 96 02/26/18 14:01 02/26/18 14:06 02/26/18 14:10 Temperature 98.2 F Pulse Rate 77 89 83 Respiratory Rate 28 H 36 H 19 Blood Pressure 120/56 L 123/68 130/58 L Pulse Oximetry 97 97 96 02/26/18 14:15 02/26/18 14:16 02/26/18 14:21 Temperature Pulse Rate 75 89 79 Respiratory Rate 19 22 17 Blood Pressure 122/59 L 121/54 L Pulse Oximetry 94 L 94 L 94 L 02/26/18 14:30 02/26/18 14:45 02/26/18 14:54 Temperature Pulse Rate 86 90 82 Respiratory Rate 19 23 24 Blood Pressure 128/58 L 119/59 L Pulse Oximetry 95 94 L 93 L 02/26/18 15:00 02/26/18 15:17 02/26/18 15:30 Temperature Pulse Rate 84 96 H 83 Respiratory Rate 33 H 21 60 H Blood Pressure 128/56 L 103/53 L Pulse Oximetry 92 L 02/26/18 16:00 02/26/18 20:50 02/27/18 01:50 Temperature 97.8 F 97.7 F 97.7 F Pulse Rate 71 84 91 H Respiratory Rate 14 18 17 Blood Pressure 142/62 H 116/59 L 130/60 Pulse Oximetry 95 98 97 02/27/18 04:20 Temperature 97.9 F Pulse Rate 73 Respiratory Rate 17 Blood Pressure 134/61 Pulse Oximetry 100 Intake & Output 02/26/18 02/27/18 02/27/18 18:59 06:59 18:59 Intake Total 1823 / 1823 650 / 650 Output Total 200 / 200 Balance 1623 / 1623 650 / 650 Weight 92 kg 91.6 kg Intake: IV 1463 / 1463 50 / 50 LR 1000 mL Inj 1,000 ML @ 30 1000 / 1000 mls/hr IV.CONT .Q24H ONE Rx#: [id number] Cyklokapron Inj 1,300 MG In NS 113 / 113 Inj 100 ML @ 200 mls/hr IV.SIG ONCE REJI Rx#:[id number] Vancomycin Inj 1,000 MG In NS 250 / 250 Inj 250 ML @ 250 mls/hr IV.SIG [employer] [facility] Rx#:[id number] Ancef 2 GM Premix Inj 2 gm In 100 / 100 50 / 50 50 ml @ 100 mls/hr IV.SIG Q6H REJI Rx#:[id number] Oral 360 / 360 600 / 600 Output: Estimated Blood Loss 200 / 200 Other: # Voids 2 # Incontinent Voids 2 Date of Last Bowel Movement 02/25/18 # Bowel Movements 0 Weight On Admission 86.6 kg Narrative: in bed, nad dressing c/d/i neg homans nvi Results - Labs Laboratory Results - last 24 hr 02/26/18 10:27 Blood Type O Positive Blood Type Recheck Required Antibody Screen Negative - Imaging Impressions Knee X-Ray 02/26/18 08:42 CONCLUSION: Postop left knee arthroplasty. Assessment and Plan - Ortho Post Op Day # 1 - Assessment and Plan s/p L TKA wbat maintain dressing asa 81 d/c planning to snf ortho stable f/up dr. agudelo 2 weeks
[2018-02-27] MEDS: Multivitamin/Minerals Therapeutic Tablet PO SCH ×2 (08:45→21:14)
[2018-02-27] MEDS: Pantoprazole Sodium 20 MG DR Tablet PO SCH (08:45)
[2018-02-27] MEDS: Metoprolol Tartrate 25 MG Tablet PO SCH (08:45)
[2018-02-27] MEDS: Senna/Docusate Sodium 8.6/50 MG Tablet PO SCH ×2 (08:45→21:15)
[2018-02-27 09:36] LABS: Hematocrit 34.4 % (35.0-46.0); Hemoglobin 11.3 gm/dL (11.6-15.3)
[2018-02-27 22:58] VITALS: O2SAT 97
[2018-02-28] MEDS: Levothyroxine 75 MCG Tablet PO SCH (06:03)
[2018-02-28 06:09] VITALS: BP 149/65; PULSE 90; TEMP 98.2
--- NOTE | 2018-02-28 07:27 | P.PNOP ---
Subjective Interval history: painful but doing ok. Physical Exam Vital signs: Vital Signs 02/27/18 08:00 02/27/18 09:15 02/27/18 12:00 Temperature 97.7 F 97.2 F L Pulse Rate 72 63 Respiratory Rate 18 18 18 Blood Pressure 151/68 H 155/67 H Pulse Oximetry 97 98 02/27/18 16:56 02/27/18 18:38 02/27/18 20:00 Temperature 98.3 F 98.1 F Pulse Rate 89 91 H Respiratory Rate 18 18 16 Blood Pressure 105/69 169/67 H Pulse Oximetry 94 L 98 02/27/18 22:00 02/28/18 01:30 02/28/18 04:30 Temperature 97.8 F 98.2 F Pulse Rate 81 90 Respiratory Rate 16 16 16 Blood Pressure 140/64 149/65 H Pulse Oximetry 97 97 Intake & Output 02/27/18 02/28/18 02/28/18 18:59 06:59 18:59 Intake Total 750 / 750 Balance 750 / 750 Weight 91.2 kg Intake: Oral 750 / 750 Other: # Voids 1 3 Date of Last Bowel Movement 02/25/18 02/28/18 02/28/18 # Bowel Movements 2 Narrative: sitting in chair, nad dressing c/d/i neg homans nvi Results - Labs CBC & Chem 7: 02/27/18 08:32 Laboratory Results - last 24 hr 02/27/18 08:32 Hgb 11.3 L Hct 34.4 L Assessment and Plan - Ortho Post Op Day # 2 - Assessment and Plan s/p L TKA wbat maintain dressing asa 81 d/c planning to snf - waiting for auth ortho stable f/up dr. agudelo 2 weeks
[2018-02-28] MEDS: Multivitamin/Minerals Therapeutic Tablet PO SCH (08:06)
[2018-02-28] MEDS: Pantoprazole Sodium 20 MG DR Tablet PO SCH (08:06)
[2018-02-28] MEDS: Metoprolol Tartrate 25 MG Tablet PO SCH (08:06)
[2018-02-28] MEDS: Senna/Docusate Sodium 8.6/50 MG Tablet PO SCH (08:07)
[2018-02-28 11:29] VITALS: RESP 18
== END 2018-02-28 14:01 | DRG 470 ==
LOC: HSDI 07:07 → HSDC 07:08 → EDSTATUS 10:00 → N06 15:47
PROVIDERS: ADMIT Orthopaedic Surgery Sports Medicine; ATTEND Orthopaedic Surgery Sports Medicine
CPT/HCPCS: 73560; 85014; 85018; 86850; 86900; 86901; 94150; 97110; 97116; 97150; 97162; 97166; C1776; C9290; J0171; J0690; J0735; J1100; J1580; J1885; J2175; J2250; J2270; J2795; J3010; J3370; J7050; J7120; L1830